=== PATIENT | female | born 1995 | race Caucasian/White ===

== ENCOUNTER 2020-05-15 10:20 | Day surgery (SDC) | payer BC, OTHER ==
[2020-05-12 12:22] LABS: BASOPHILS % (AUTO) 1 % (0-1); EOSINOPHILS % (AUTO) 1 % (1-7); LYMPHOCYTES % (AUTO) 33 % (22-44); MEAN CORPUSCULAR HEMOGLOBIN 30.4 pg (27.0-34.8); MEAN CORPUSCULAR HGB CONC 33.7 g/dL (32.4-35.8); MEAN PLATELET VOLUME 10.4 fL (7.4-10.4); MONOCYTES % (AUTO) 5 % (2-9); NEUTROPHILS % (AUTO) 60 % (42-75); PLATELET COUNT 216 x10^3/uL (130-400); RED CELL DISTRIBUTION WIDTH 12.2 % (9.6-15.2)
[2020-05-12 12:31] LABS: MD NO
[~2020-05-15] VITALS: Ht 162.6 cm; Wt 60.0 kg
[~2020-05-15 10:20] MED LIST: IBUP200C8 PO
[2020-05-15] MEDS ORDERED: CHLORHEXIDINE 15 ML UDC MM STA (10:37)
[2020-05-15] MEDS ORDERED: CHLORHEXIDINE 15 ML UDC ONE (10:43)
[2020-05-15 10:56] VITALS: BP 119/76
[2020-05-15] MEDS ORDERED: LACTATED RINGERS 1,000 ML IV SCH ×2 (11:00→15:00)
[2020-05-15] MEDS ORDERED: FENTANYL PF 100 MCG/2ML ONE ×2 (12:48→15:15)
[2020-05-15] MEDS ORDERED: MIDAZOLAM 1 MG/ML, 2ML ONE (12:48)
[2020-05-15] MEDS ORDERED: ONDANSETRON 2MG/ML, 2ML ONE ×2 (12:49→13:25)
[2020-05-15] MEDS ORDERED: SUCCINYLCHOLINE 20 MG/ML, 10ML ONE (12:49)
[2020-05-15] MEDS ORDERED: ROCURONIUM 10MG/ML,5ML ONE (12:49)
[2020-05-15] MEDS ORDERED: PROPOFOL 10 MG/ML, 20ML ONE (12:49)
[2020-05-15] MEDS ORDERED: ONDANSETRON 2MG/ML, 2ML IVPush PRN ×2 (13:00→15:00)
[2020-05-15] MEDS ORDERED: PROMETHAZINE 25 MG/ML, 1ML IVPush PRN (13:00)
[2020-05-15] MEDS ORDERED: hydrALAzine 20 MG/ML, 1ML IV PRN (13:00)
[2020-05-15] MEDS ORDERED: EPHEDRINE 50 MG/ML, 1ML IVPush PRN (13:00)
[2020-05-15] MEDS ORDERED: ACETAMINOPHEN 325 MG TABLET PO PRN (13:00)
[2020-05-15] MEDS ORDERED: HYDROmorphone 1 MG/ML, 1ML INJ IVPush PRN (13:00)
[2020-05-15] MEDS ORDERED: LABETALOL 5MG/ML, 20ML IV PRN (13:00)
[2020-05-15] MEDS ORDERED: MEPERIDINE/PF 25MG/0.5ML IVPush PRN (13:00)
[2020-05-15] MEDS ORDERED: OXYcodone 5 MG/5 ML ORAL.SOL UDC PO PRN ×2 (13:00→15:00)
[2020-05-15] MEDS ORDERED: BUPIVACAINE/PF 0.25% ONE (13:01)
[2020-05-15] MEDS ORDERED: SILVER NITRATE STICK TP ONE (13:01)
[2020-05-15] MEDS ORDERED: EPINEPHRINE 1 MG/ML, 1ML ONE (13:01)
[2020-05-15] MEDS ORDERED: DEXAMETHASONE 4 MG/ML, 1ML ONE (13:25)
[2020-05-15] MEDS ORDERED: LIDOCAINE-MPF 2% ,5ML ONE (13:33)
[2020-05-15] MEDS ORDERED: KETOROLAC 30 MG/1 ML ONE (13:33)
[2020-05-15] MEDS ORDERED: SUGAMMADEX 200 MG/2 ML IVPush ONE (13:33)
[2020-05-15] MEDS ORDERED: BUPIVACAINE/PF-EPI 0.25% 1:200K INFIL ONE (14:00)
[2020-05-15] MEDS ORDERED: KETOROLAC 30 MG/1 ML IVPush PRN (15:00)
[2020-05-15] MEDS ORDERED: PROMETHAZINE 25 MG/ML, 1ML IVPush ONE (15:00)
[2020-05-15] MEDS ORDERED: PROMETHAZINE 12.5 MG SUPP PR ONE (15:00)
[2020-05-15] MEDS ORDERED: morphine SULFATE 10 MG/ML, 1ML IVPush PRN (15:00)
[2020-05-15] MEDS ORDERED: OXYcodone/APAP 5/325MG TABLET PO PRN (15:00)
[2020-05-15] MEDS ORDERED: OXYcodone 5 MG/5 ML ORAL.SOL UDC ONE (15:15)
[2020-05-15] MEDS: FENTANYL PF 100 MCG/2ML IV PRN ×3 (15:20→15:46)
== END 2020-05-15 18:30 | disposition home or self-care (01) ==
LOC: OUT 10:20
PROVIDERS: ATTEND Obstetrics & Gynecology
DX: D27.0 Benign neoplasm of right ovary (principal); Z20.828 Contact with and (suspected) exposure to other viral communicable diseases; Z97.5 Presence of (intrauterine) contraceptive device
CPT/HCPCS: 36415; 58661; 84702; 85025; 88305; J0171; J0330; J1100; J1885; J2250; J2405; J2704; J3010; J7120; U0003